=== PATIENT | female | born 1995 | race Caucasian/White ===

== ENCOUNTER 2021-01-12 11:22 | Emergency (ER) | payer OTHER ==
[2021-01-12 12:25] VITALS: BP 114/72
[2021-01-12] MEDS ORDERED: ACETAMINOPHEN 325 MG TAB PO ONE (12:33)
[2021-01-12] MEDS ORDERED: IBUPROFEN 400 MG TAB PO ONE (12:33)
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
[2021-01-12] MEDS ORDERED: ESMOLOL 100 MG/10 ML INJ IV ONE (14:49)
[2021-01-12] MEDS ORDERED: fentaNYL 100 MCG/2 ML INJ ONE (14:51)
== END 2021-01-12 14:41 | disposition home or self-care (01) ==
LOC: ED 11:22
DX: M25.532 Pain in left wrist (principal); V89.2XXA Person injured in unspecified motor-vehicle accident, traffic, initial encounter; Y93.89 Activity, other specified; Y99.8 Other external cause status
CPT/HCPCS: 73110; 99283; J3010